=== PATIENT | female | born 1980 | race Caucasian/White ===

== ENCOUNTER 2017-02-15 03:41 | Emergency (ER) | payer OTHER ==
--- NOTE | 2017-02-15 04:09 | ED CLINICAL REPORT ---
Clinical Report - Physicians/Mid Levels [facility] [address] [place] [address] 02/15/2017 3:42 [id number] Time Seen: 03:56 Feb 15 2017. Arrived- By private vehicle. Historian- patient. CPT: ER phys charges level 4 (#[id number]). HISTORY OF PRESENT ILLNESS Chief Complaint: DYSPNEA, WHEEZING and HISTORY OF ASTHMA. This started about 6 days [employer]EL[employer]IN [employer] and is still present. The dyspnea is described as moderate. No cough, sputum production or chest pain or discomfort. See nurses notes for current asthma threapy. Asthma triggers: unknown. Takes asthma medications. Similar symptoms previously: As bad. Diagnosis: asthma. Recent medical care: Not recently seen/assessed. REVIEW OF SYSTEMS No sore throat, nasal discharge, sinus drainage, fever or chills. No muscle aches, palpitations, calf pain, nausea or abdominal pain. No diarrhea, difficulty with urination, excessive urination, skin rash or enlarged lymph nodes. PAST HISTORY Cholelithiasis. Asthma. MRSA Infection. . ADDITIONAL SURGERIES: C Sections (2). Knee Surgery. Medications: Albuterol Sulfate Inhalation. Allergies: Many pain medications. Tramadol HCL. Vicodin.(hives). SOCIAL HISTORY Never smoker. No alcohol use or drug use. ADDITIONAL NOTES The nursing notes have been reviewed. PHYSICAL EXAM Vital Signs: 02/15/2017 03:46 BP: 123/69. HR: 99. RR: 40. O2 saturation: 99%. Temp: 97.8 F. Pain level now: 0/10. Appearance: Alert. No acute distress. Eyes: Eyes normal inspection. ENT: Nose normal. Pharynx normal. Uvula midline. Neck: Normal inspection. CVS: Normal heart rate and rhythm. Heart sounds normal. Pulses normal. Respiratory: Moderate respiratory distress with tachypnea. Expiratory moderate bilateral wheezes diffusely. Abdomen: Soft and nontender. Skin: Skin warm. Normal skin color. No rash. Extremities: No lower extremity edema. Neuro: Oriented X 3. No motor deficit. PROGRESS AND PROCEDURES Course of Care: Albuterol HHN Prednisone 60 mg po Patient is stable. Symptoms much better. Patient/family counseled. Disposition: Discharged. Condition: stable and improved. CLINICAL IMPRESSION Moderate persistent asthma with an acute exacerbation (recurrent). No status asthmaticus. out of meds. INSTRUCTIONS (gets meds later today when ready.). Warnings: Further evaluation is necessary. GENERAL WARNINGS: Return or contact your physician immediately if your condition worsens or changes unexpectedly, if not improving as expected, or if other problems arise. Your Current Medications: CONTINUE TAKING THE FOLLOWING MEDICATIONS: Albuterol Sulfate Inhalation. Prescription Medications: prednisone 40 mg a day for 3 days. Follow-up: Follow up with your doctor in one week. Call for an appointment. Understanding of the discharge instructions verbalized by patient. (Electronically signed by Damon Crowder MD 02/19/2017 21:03)
--- NOTE | 2017-02-15 04:09 | ED CLINICAL REPORT ---
Clinical Report - Physicians/Mid Levels [facility] [address] [place] [address] 02/15/2017 3:42 [id number] Time Seen: 03:56 Feb 15 2017. Arrived- By private vehicle. Historian- patient. CPT: ER phys charges level 4 (#[id number]). HISTORY OF PRESENT ILLNESS Chief Complaint: DYSPNEA, WHEEZING and HISTORY OF ASTHMA. 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 The dyspnea is described as moderate. No cough, sputum production or chest pain or discomfort. See nurses notes for current asthma threapy. Asthma triggers: unknown. Takes asthma medications. Similar symptoms previously: As bad. Diagnosis: asthma. Recent medical care: Not recently seen/assessed. REVIEW OF SYSTEMS No sore throat, nasal discharge, sinus drainage, fever or chills. No muscle aches, palpitations, calf pain, nausea or abdominal pain. No diarrhea, difficulty with urination, excessive urination, skin rash or enlarged lymph nodes. PAST HISTORY Cholelithiasis. Asthma. MRSA Infection. . ADDITIONAL SURGERIES: C Sections (2). Knee Surgery. Medications: Albuterol Sulfate Inhalation. Allergies: Many pain medications. Tramadol HCL. Vicodin.(hives). SOCIAL HISTORY Never smoker. No alcohol use or drug use. ADDITIONAL NOTES The nursing notes have been reviewed. PHYSICAL EXAM Vital Signs: 02/15/2017 03:46 BP: 123/69. HR: 99. RR: 40. O2 saturation: 99%. Temp: 97.8 F. Pain level now: 0/10. Appearance: Alert. No acute distress. Eyes: Eyes normal inspection. ENT: Nose normal. Pharynx normal. Uvula midline. Neck: Normal inspection. CVS: Normal heart rate and rhythm. Heart sounds normal. Pulses normal. Respiratory: Moderate respiratory distress with tachypnea. Expiratory moderate bilateral wheezes diffusely. Abdomen: Soft and nontender. Skin: Skin warm. Normal skin color. No rash. Extremities: No lower extremity edema. Neuro: Oriented X 3. No motor deficit. PROGRESS AND PROCEDURES Course of Care: Albuterol HHN Prednisone 60 mg po Patient is stable. Symptoms much better. Patient/family counseled. Disposition: Discharged. Condition: stable and improved. CLINICAL IMPRESSION Moderate persistent asthma with an acute exacerbation (recurrent). No status asthmaticus. out of meds. INSTRUCTIONS (gets meds later today when ready.). Warnings: Further evaluation is necessary. GENERAL WARNINGS: Return or contact your physician immediately if your condition worsens or changes unexpectedly, if not improving as expected, or if other problems arise. Your Current Medications: CONTINUE TAKING THE FOLLOWING MEDICATIONS: Albuterol Sulfate Inhalation. Prescription Medications: prednisone 40 mg a day for 3 days. Follow-up: Follow up with your doctor in one week. Call for an appointment. Understanding of the discharge instructions verbalized by patient. (Electronically signed by Damon Crowder MD 02/19/2017 21:03)
--- NOTE | 2017-02-15 04:10 | ED ORDER SUMMARY ---
..... Patient: JOEY SHAW OrderSheet [facility] VisitID: [id number] [address] [place] [address] 37y, F Registration Date/Time: 02/15/2017 ORDER SHEET Weight: 97.5 kg (stated) Allergies: Many pain medications, Tramadol HCL, Vicodin GENERAL ORDERS: MEDICATION ORDERS: Albuterol Neb w Atrovent 1 unit dose (NOW) (03:51 02/15/2017 DDavis R.N. per protocol) (Ack 3:51 DDavis R.N.) (4:10 DDavis R.N.) Prednisone PO 60 mg (NOW) (04:08 02/15/2017 Manuelito GONZÁLES) (4:15 DDavis R.N.) IV FLUIDS: ORDER SHEET NOTES: [Electronically signed by Maxim Albarado R.N. (04:16 02/15/2017)] [Electronically signed by Damon Crowder MD (21:03 02/19/2017)] [Electronically locked/signed by Maxim Albarado R.N. (04:16 02/15/2017)]
--- NOTE | 2017-02-15 04:10 | ED NURSING NOTES ---
Clinical Report - Nurses [facility] [address] [place] [address] 02/15/2017 3:42 Patient: JOEY SHAW TRIAGE Triage time 03:46. Acuity: LEVEL 3. Chief Complaint: "ASTHMA ATTACK" and WHEEZING. Alert. --03:50 Maxim Albarado R.N. 03:46 02/15/17. BP: 123/69. HR: 99. RR: 40 (labored). O2 saturation: 99% on room air. Temp: 97.8 F (oral). Pain level now: 0/10. --03:50 Maxim Albarado R.N. OMAR COMA SCORE: [place] Coma Scale: 15- eyes open spontaneously (4); best verbal response- oriented x 4 (5); best motor response- obeys commands (6). --03:50 Maxim Albarado R.N. Weight: 97.5 kg stated. Height/Length: 62 inches Per Patient. BMI: 39.4. --03:45 Maxim Albarado R.N. Medications Albuterol Sulfate Inhalation. --03:47 Maxim Albarado R.N. Allergies Many pain medications. Tramadol HCL. Vicodin.(hives) --03:47 Maxim Albarado R.N. History Arrived by private vehicle, and unaccompanied. Onset. (saturday ( 6 days ago), increasing today). PAST MEDICAL HX: Asthma. SOCIAL HX: Never smoker. No alcohol use or drug use. ( denies HI/SI, states that she feels safe at home). FALL RISK ASSESSMENT: Fall risk assessment completed. No fall risk identified. NUTRITIONAL RISK ASSESSMENT: The nutritional risk assessment revealed no deficiencies. FUNCTIONAL ASSESSMENT: Functional assessment: no impairments noted. LEARNING NEEDS ASSESSMENT: The learning needs assessment revealed no barriers. SKIN INTEGRITY ASSESSMENT: Skin integrity risk assessment completed. No skin integrity risk identified. --03:50 Maxim Albarado R.N. PROBLEMS: Cholelithiasis. Asthma. MRSA Infection. --03:47 Maxim Albarado R.N. ADDITIONAL SURGERIES: C Sections (2). Knee Surgery. --03:47 Maxim Albarado R.N. Interventions ID band on patient. To treatment room. --03:50 Maxim Albarado R.N. PHYSICAL ASSESSMENT Ambulatory to room. GENERAL / NEURO / PSYCH: Oriented X 4. Appears in distress. HEENT: Mucous membranes are pink. RESPIRATORY: Moderate respiratory distress. The patient can speak a few words at a time. CVS: Capillary refill less than 2 seconds. GI / : Abdomen soft and nontender. SKIN: Skin is warm and dry. Normal skin turgor. --03:50 Maxim Albarado R.N. RESPIRATORY: Expiratory and inspiratory wheezes present. --03:52 Maxim Albarado R.N. GENERAL / NEURO / PSYCH: Alert. Oriented X 4. Appears in no acute distress. RESPIRATORY: No respiratory distress. Respirations not labored. Breath sounds within normal limits. --04:10 Maxim Albarado R.N. NURSING PROGRESS NOTES ( RT present with patient). --03:51 Maxim Albardao R.N. Pulse oximeter and NIBP monitor placed on patient. Patient gowned. Two patient identifiers checked. Call light placed in reach. Side rails up x 1. Bed placed in lowest position. Brakes of bed on. Patient ready for evaluation- chart flagged. Patient waiting for evaluation. --03:52 Maxim Albarado R.N. ED physician notified. --03:54 Maxim Albarado R.N. 03:55 02/15/2017 ALBUTEROL NEB W ATROVENT Neb TX Nebulizer 1 unit dose given. Given by the respiratory therapist. --04:10 Maxim Albarado R.N. 04:15 02/15/2017 Prednisone PO Tablets 60 mg given. Allergies verified and confirmed 5 rights. --04:15 Maxim Albarado R.N. DISPOSITION / DISCHARGE 04:11 02/15/17. BP: 112/57. HR: 98. RR: 20 (regular and unlabored). O2 saturation: 98% on room air. Pain level now: 0/10. --04:11 Maxim Albarado R.N. Departure time: 04:15. Condition at departure: improved and stable. No learning barriers present. Discharge instructions provided and reviewed with the patient. Reviewed warnings. Reviewed medication(s) side effects, precautions, dosing and course information. Prescription(s) given to the patient. Treatments reviewed. Reviewed referrals for followup. Patient verbalized understanding. Written instructions provided in Azeri. The patient was discharged home and unaccompanied at time of discharge. She left the Emergency Department ambulatory and via private vehicle. Patient driving. --04:16 Maxim Albarado R.N. Locked/Released at 02/15/2017 4:16 by Maxim Albarado R.N.
--- NOTE | 2017-02-15 04:10 | ED ORDER SUMMARY ---
..... Patient: JOEY SHAW OrderSheet [facility] VisitID: [id number] [address] [place] [address] 37y, F Registration Date/Time: 02/15/2017 ORDER SHEET Weight: 97.5 kg (stated) Allergies: Many pain medications, Tramadol HCL, Vicodin GENERAL ORDERS: MEDICATION ORDERS: Albuterol Neb w Atrovent 1 unit dose (NOW) (03:51 02/15/2017 DDavis R.N. per protocol) (Ack 3:51 DDavis R.N.) (4:10 DDavis R.N.) Prednisone PO 60 mg (NOW) (04:08 02/15/2017 Manuelito GONZÁLES) (4:15 DDavis R.N.) IV FLUIDS: ORDER SHEET NOTES: [Electronically signed by Maxim Albarado R.N. (04:16 02/15/2017)] [Electronically signed by Damon Crowder MD (21:03 02/19/2017)] [Electronically locked/signed by Maxim Albarado R.N. (04:16 02/15/2017)]
--- NOTE | 2017-02-19 21:03 | ED MAR SUMMARY ---
..... Medication Administration Record [facility] [address] [place] [address] Patient: JOEY SHAW Visit ID: [id number] 37y, F Weight: 97.5 kg Height/Length: 62 in BMI: 39.4 ALLERGIES: Many pain medications, Tramadol HCL, Vicodin Given 03:55 02/15/2017 Maxim Albarado RMirnaN. Medication Administered: ALBUTEROL NEB W ATROVENT, Dose: 1 unit dose Nebulizer Neb [place]. Medication Ordered: Albuterol Neb w Atrovent 1 unit dose (NOW). Given 04:15 02/15/2017 Maxim Albarado, RMirnaN. Medication Administered: PREDNISONE [PO], Dose: 60 mg Tablets PO. Medication Ordered: Prednisone PO 60 mg (NOW).
--- NOTE | 2017-02-19 21:03 | ED MED RECONCILIATION SUMMARY ---
Patient: JOEY SHAW Medication Reconciliation Report [facility] VisitID: [id number] [address] [place] [address] 37y, F Registration Date/Time: 02/15/2017 Weight: 97.5 kg Height/Length: 62 in. BMI: 39.4 ALLERGIES: Many pain medications, Tramadol HCL, Vicodin The patient's Home Medications are listed below: CONTINUE TAKING THE FOLLOWING MEDICATIONS: Albuterol Sulfate Inhalation The source(s) of the original Home Medication information: Not obtained. The following Medications were given to the patient in the Emergency Department: ALBUTEROL NEB W ATROVENT Neb TX 1 unit dose, administered: 02/15/2017 3:55:00 AM Prednisone [PO] PO 60 mg, administered: 02/15/2017 4:15:00 AM The following Medications were prescribed to the patient: prednisone 40 mg a day for 3 days. -- Damon Crowder MD
--- NOTE | 2017-02-19 21:03 | ED MED RECONCILIATION SUMMARY ---
Patient: JOEY SHAW Medication Reconciliation Report [facility] VisitID: [id number] [address] [place] [address] 37y, F Registration Date/Time: 02/15/2017 Weight: 97.5 kg Height/Length: 62 in. BMI: 39.4 ALLERGIES: Many pain medications, Tramadol HCL, Vicodin The patient's Home Medications are listed below: CONTINUE TAKING THE FOLLOWING MEDICATIONS: Albuterol Sulfate Inhalation The source(s) of the original Home Medication information: Not obtained. The following Medications were given to the patient in the Emergency Department: ALBUTEROL NEB W ATROVENT Neb TX 1 unit dose, administered: 02/15/2017 3:55:00 AM Prednisone [PO] PO 60 mg, administered: 02/15/2017 4:15:00 AM The following Medications were prescribed to the patient: prednisone 40 mg a day for 3 days. -- Damon Crowder MD
--- NOTE | 2017-02-19 21:03 | ED DISCHARGE INSTRUCTIONS ---
Patient: JOEY SHAW General Instructions [facility] VisitID: [id number] [address] [place] [address] 37y, F Registration Date/Time: 02/15/2017 Moderate persistent asthma with an acute exacerbation (recurrent). No status asthmaticus. out of meds. INSTRUCTIONS (gets meds later today when ready.). Warnings: Further evaluation is necessary. GENERAL WARNINGS: Return or contact your physician immediately if your condition worsens or changes unexpectedly, if not improving as expected, or if other problems arise. Your Current Medications: CONTINUE TAKING THE FOLLOWING MEDICATIONS: Albuterol Sulfate Inhalation. Prescription Medications: prednisone 40 mg a day for 3 days. Follow-up: Follow up with your doctor in one week. Call for an appointment. Understanding of the discharge instructions verbalized by patient. ADDITIONAL INFORMATION Asthma [Adult] Asthma is a disease where the small air passages within the lung go into spasm and restrict the flow of air. Inflammation and swelling of the airways cause further restriction. During an acute asthma attack, these factors cause difficulty breathing, wheezing, cough and chest tightness. An asthma attack can be triggered by many things. Common triggers include the common cold, bronchitis, pneumonia, irritants such as smoke or pullutants in the air, emotional upset and heavy exercise. Inmany adults with asthma, allergies todust, mold, pollen and animal dander can cause an asthma attack. Skipping doses of daily asthma medicine can also bring on an asthma attack. Asthma can be controlled with proper medicines and decreased exposure to known allergens. Home Care: Take prescribed medicine exactly at the times advised. If you have a hand-held inhaler or aerosol breathing medicine, do not use it more than once every four hours, unless told to do so. (If you need this medicine more than every four hours, you may need to return to the Emergency Room.) If prescribed an antibiotic or prednisone, take all of the medicine even if you are feeling better after a few days. Do not smoke. Avoid being exposed to the smoke of others. Some persons with asthma have worsening of their symptoms when they take aspirin and non-steroidal medicines like ibuprofen (Motrin, Advil) and naproxen (Aleve, Naprosyn). Talk to your doctor if you think this may apply to you. Acetaminophen (Tylenol)should be safe to use. Follow Up with your doctor, or as advised by our staff. Always bring all of your current medicines with you for your doctor to see. If you do not already have one, talk to your doctor about developing a personalized "Asthma Action Plan." [NOTE: A pneumococcal vaccine and yearly flu shot (every fall) are recommended. Ask your doctor about this.] Get Prompt Medical Attention if any of the following occur: Increased wheezing or shortness of breath Need to use your inhalers more often than usual without relief Fever of 100.4F (38C) or higher, or as directed by your healthcare provider Coughing up lots of dark-colored or bloody sputum (mucus) Chest pain with each breath You do not start to improve within 24 hours Call 911 If Any Of The Following Occur : Trouble walking or talking because of shortness of breath If you use a peak flow meter andyou are still in the red zone (less than 50 percent) 15 minutes after using inhaler medication Lips or fingernails turning hui or blue You have been given the following additional information: Asthma, Acute (Adult) (Electronically signed by Damon Crowder MD 02/19/2017 21:03)
--- NOTE | 2017-02-19 21:03 | ED MAR SUMMARY ---
..... Medication Administration Record [facility] [address] [place] [address] Patient: JOEY SHAW Visit ID: [id number] 37y, F Weight: 97.5 kg Height/Length: 62 in BMI: 39.4 ALLERGIES: Many pain medications, Tramadol HCL, Vicodin Given 03:55 02/15/2017 Maxim Albarado RMirnaN. Medication Administered: ALBUTEROL NEB W ATROVENT, Dose: 1 unit dose Nebulizer Neb [place]. Medication Ordered: Albuterol Neb w Atrovent 1 unit dose (NOW). Given 04:15 02/15/2017 Maxim Albarado, RMirnaN. Medication Administered: PREDNISONE [PO], Dose: 60 mg Tablets PO. Medication Ordered: Prednisone PO 60 mg (NOW).
== END 2017-02-15 04:15 | disposition home or self-care (01) ==
LOC: ED SRH 03:41
DX: J45.41 Moderate persistent asthma with (acute) exacerbation (principal)

== ENCOUNTER 2017-03-05 21:34 | Emergency (ER) | payer OTHER ==
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
--- NOTE | 2017-03-05 22:37 | ED ORDER SUMMARY ---
..... Patient: JOEY SHAW OrderSheet [facility] VisitID: [id number] [address] [place] [address] 37y, F Registration Date/Time: 03/05/2017 ORDER SHEET Weight: 97.5 kg Allergies: Many pain medications, Tramadol HCL, Vicodin GENERAL ORDERS: Shoulder 2V or more Right Urgent (22:11 03/05/2017 HBivens A.R.N.P.) (22:15 EHassan R.N.) ([facility] 22:15 AMcQuoid ER Tech1) MEDICATION ORDERS: Toradol IM 60 mg (NOW) (22:11 03/05/2017 HBivens A.R.N.P.) (22:27 EHassan R.N.) IV FLUIDS: ORDER SHEET NOTES: [Electronically signed by Malgorzata Leon R.N. (23:00 03/05/2017)] [Electronically signed by Nicki Palma.R.N.P. (13:22 03/06/2017)] [Electronically locked/signed by Malgorzata Leon R.N. (23:00 03/05/2017)]
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
--- NOTE | 2017-03-05 22:37 | ED ORDER SUMMARY ---
..... Patient: JOEY SHAW OrderSheet VisitID: [id number] [address] [place] [address] 37y, F Registration Date/Time: 03/05/2017 ORDER SHEET Weight: 97.5 kg Allergies: Many pain medications, Tramadol HCL, Vicodin GENERAL ORDERS: Shoulder 2V or more Right Urgent (22:11 03/05/2017 HBivens A.R.N.P.) (22:15 EHassan R.N.) ([facility] 22:15 AMcQuoid ER Tech1) MEDICATION ORDERS: Toradol IM 60 mg (NOW) (22:11 03/05/2017 HBivens A.R.N.P.) (22:27 EHassan R.N.) IV FLUIDS: ORDER SHEET NOTES: [Electronically signed by Malgorzata Leon R.N. (23:00 03/05/2017)] [Electronically signed by Nicki Palma.R.N.P. (13:22 03/06/2017)] [Electronically locked/signed by Malgorzata Leon R.N. (23:00 03/05/2017)]
--- NOTE | 2017-03-05 23:18 | DIAGNOSTIC IMAGING REPORT ---
PROCEDURE: XR SHOULDER 2 OR MORE VW-RIGHT INDICATION: PAIN TECHNIQUE: Three views. COMPARISON: None. FINDINGS: Osseous structures, joint spaces and soft tissues are normal. IMPRESSION: 1. Normal right shoulder.
--- NOTE | 2017-03-06 13:22 | ED MED RECONCILIATION SUMMARY ---
Patient: JOEY SHAW Medication Reconciliation Report [facility] VisitID: [id number] [address] [place] [address] 37y, F Registration Date/Time: 03/05/2017 Weight: 97.5 kg Height/Length: 62 in. BMI: 39.4 ALLERGIES: Many pain medications, Tramadol HCL, Vicodin The patient's Home Medications are listed below: THE FOLLOWING MEDICATIONS NEED TO BE RECONCILED: Albuterol Sulfate Inhalation The source(s) of the original Home Medication information: patient The following Medications were given to the patient in the Emergency Department: Toradol [IM] IM 60 mg, administered: 03/05/2017 10:27:00 PM The following Medications were prescribed to the patient: Naproxen 500 mg tablets: take 1 orally every 12 hours as needed for pain. Dispense twenty (20). No refills. -- Nicki Palma A.R.N.P.
--- NOTE | 2017-03-06 13:22 | ED DISCHARGE INSTRUCTIONS ---
Patient: JOEY SHAW General Instructions [facility] VisitID: [id number] [address], [place] [address] 37y, F Registration Date/Time: 03/05/2017 Chronic upper extremity pain involving the right shoulder. INSTRUCTIONS Warnings: GENERAL WARNINGS: Return or contact your physician immediately if your condition worsens or changes unexpectedly, if not improving as expected, or if other problems arise. Specifically return if problem worsens. Prescription Medications: Naproxen 500 mg tablets: take 1 orally every 12 hours as needed for pain. Dispense twenty (20). No refills. Understanding of the discharge instructions verbalized by patient. Follow-up with: [facility], [facility], , [address], , [place] [phone]; Mook Arias M.D., Ortho, , [address], , [place] [phone]; William Geronimo M.D., Ortho, , [address], , [facility] [id number]; Haresh Goodman MD, Orthopedic Surgeon, , [address], , [place], [address]; Nicholas Solitario MD, Orthopedic Surgeon, , [address] , [place] [phone] Follow up in about one week as needed. Call for an appointment. Summary of care provided to patient. ADDITIONAL INFORMATION Shoulder Pain (Uncertain Cause) Shoulder pain often arises from the structures that surround the shoulder joint (the joint capsule, ligaments, tendons, muscles, and bursa). The joint itself contains cartilage that can become worn out or injured and can also be a source of pain. The correct treatment requires knowing the cause of the pain. Sometimes it is difficult to diagnose the exact cause of shoulder pain and referral to a specialist may be required. You may eventually need special tests such as CT scan, MRI, or arthroscopy (a procedure that uses special instruments to look inside the joint through a small incision). Shoulder pain can be treated initially with a sling or shoulder immobilizer and anti-inflammatory medicines such as ibuprofen. Special shoulder exercises may be needed. Follow-up with a specialist is important when pain is severe or does not go away after a few weeks. Home Care: If a sling was provided, leave it in place for the time advised by your doctor. If you are unsure how long to wear it, ask for advice. If the sling becomes loose, adjust it so that your forearm is level with the ground and the shoulder feels well supported. Apply an ice pack (ice cubes in a plastic bag, wrapped in a towel) over the injured area for 20 minutes every 1 to 2 hours the first day for pain relief. Continue this 3 to 4 times a day until the pain and swelling go away. You may use acetaminophen (Tylenol) or ibuprofen (Motrin, Advil) to control pain, unless another pain medicine was prescribed. (NOTE: If you have chronic liver or kidney disease or ever had a stomach ulcer or GI bleeding, talk with your doctor before using these medicines.) Shoulder pain may seem worse at night, when there is less to distract you from the pain. If you sleep on your side, try to keep your weight off your painful shoulder. Propping pillows behind you may prevent you from rolling over onto that shoulder during sleep. Shoulder joints become stiff if left in a sling for too long. [id number] exercises should usually be started within the first 10 days after injury. Consult your doctor on what type of exercises to do and how soon to start. You may remove the sling to shower or bathe. Follow Up with your doctor, or as advised by our staff, if you are not starting to improve within the next 5 days. Get Prompt Medical Attention if any of the following occur: Pain or swelling increases Hand or fingers becomes cold, blue, numb, or tingly Large amount of bruising of the shoulder or upper arm Naproxen Sodium Oral tablet What is this medicine? NAPROXEN (na PROX en) is a non-steroidal anti-inflammatory drug (NSAID). It is used to reduce swelling and to treat pain. This medicine may be used for dental pain, headache, or painful monthly periods. It is also used for painful joint and muscular problems such as arthritis, tendinitis, bursitis, and gout. How should I use this medicine? Take this medicine by mouth with a glass of water. Follow the directions on the prescription label. Take it with food if your stomach gets upset. Try to not lie down for at least 10 minutes after you take it. Take your medicine at regular intervals. Do not take your medicine more often than directed. Long-term, continuous use may increase the risk of heart attack or stroke. A special MedGuide will be given to you by the pharmacist with each prescription and refill. Be sure to read this information carefully each time. Talk to your waterworks supervisor regarding the use of this medicine in children. Special care may be needed. What side effects may I notice from receiving this medicine? Side effects that you should report to your doctor or health daycare teacher as soon as possible: black or bloody stools, blood in the urine or vomit blurred vision chest pain difficulty breathing or wheezing nausea or vomiting severe stomach pain skin rash, skin redness, blistering or peeling skin, hives, or itching slurred speech or weakness on one side of the body swelling of eyelids, throat, lips unexplained weight gain or swelling unusually weak or tired yellowing of eyes or skin Side effects that usually do not require medical attention (report to your doctor or health daycare teacher if they continue or are bothersome): constipation headache heartburn What may interact with this medicine? alcohol aspirin cidofovir diuretics lithium methotrexate other drugs for inflammation like ketorolac or prednisone pemetrexed probenecid warfarin What if I miss a dose? If you miss a dose, take it as soon as you can. If it is almost time for your next dose, take only that dose. Do not take double or extra doses. Where should I keep my medicine? Keep out of the reach of children. Store at room temperature between 15 and 30 degrees C (59 and 86 degrees F). Keep container tightly closed. Throw away any unused medicine after the expiration date. What should I tell my health care provider before I take this medicine? They need to know if you have any of these conditions: asthma cigarette smoker drink more than 3 alcohol containing drinks a day heart disease or circulation problems such as heart failure or leg edema (fluid retention) high blood pressure kidney disease liver disease stomach bleeding or ulcers an unusual or allergic reaction to naproxen, aspirin, other NSAIDs, other medicines, foods, dyes, or preservatives or trying to get breast-feeding What should I watch for while using this medicine? Tell your doctor or health daycare teacher if your pain does not get better. Talk to your doctor before taking another medicine for pain. Do not treat yourself. This medicine does not prevent heart attack or stroke. In fact, this medicine may increase the chance of a heart attack or stroke. The chance may increase with longer use of this medicine and in people who have heart disease. If you take aspirin to prevent heart attack or stroke, talk with your doctor or health daycare teacher. Do not take other medicines that contain aspirin, ibuprofen, or naproxen with this medicine. Side effects such as stomach upset, nausea, or ulcers may be more likely to occur. Many medicines available without a prescription should not be taken with this medicine. This medicine can cause ulcers and bleeding in the stomach and intestines at any time during treatment. Do not smoke cigarettes or drink alcohol. These increase irritation to your stomach and can make it more susceptible to damage from this medicine. Ulcers and bleeding can happen without warning symptoms and can cause . You may get drowsy or dizzy. Do not drive, use machinery, or do anything that needs mental alertness until you know how this medicine affects you. Do not stand or sit up quickly, especially if you are an older patient. This reduces the risk of dizzy or fainting spells. This medicine can cause you to bleed more easily. Try to avoid damage to your teeth and gums when you brush or floss your teeth. You have been given the following additional information: Shoulder Pain (Uncertain Cause) Naproxen Sodium Oral tablet (Electronically signed by Nicki Palma A.R.N.P. 03/06/2017 13:22)
--- NOTE | 2017-03-06 13:22 | ED MED RECONCILIATION SUMMARY ---
Patient: JOEY SHAW Medication Reconciliation Report [facility] VisitID: [id number] [address] [place] [address] 37y, F Registration Date/Time: 03/05/2017 Weight: 97.5 kg Height/Length: 62 in. BMI: 39.4 ALLERGIES: Many pain medications, Tramadol HCL, Vicodin The patient's Home Medications are listed below: THE FOLLOWING MEDICATIONS NEED TO BE RECONCILED: Albuterol Sulfate Inhalation The source(s) of the original Home Medication information: patient The following Medications were given to the patient in the Emergency Department: Toradol [IM] IM 60 mg, administered: 03/05/2017 10:27:00 PM The following Medications were prescribed to the patient: Naproxen 500 mg tablets: take 1 orally every 12 hours as needed for pain. Dispense twenty (20). No refills. -- Nicki Palma A.R.N.P.
--- NOTE | 2017-03-06 13:22 | ED MAR SUMMARY ---
..... Medication Administration [facility] [address] [place] [address] Patient: JOEY SHAW Visit ID: [id number] 37y, F Weight: 97.5 kg Height/Length: 62 in BMI: 39.4 ALLERGIES: Many pain medications, Tramadol HCL, Vicodin Given 22:27 03/05/2017 Malgorzata Leon RRachel Medication Administered: TORADOL [IM] (KETOROLAC TROMETHAMINE), Dose: 60 mg IM. Medication Ordered: Toradol IM 60 mg (NOW).
--- NOTE | 2017-03-06 13:22 | ED DISCHARGE INSTRUCTIONS ---
Patient: JOEY SHAW General Instructions [facility] VisitID: [id number] [address], [place] [address] 37y, F Registration Date/Time: 03/05/2017 Chronic upper extremity pain involving the right shoulder. INSTRUCTIONS Warnings: GENERAL WARNINGS: Return or contact your physician immediately if your condition worsens or changes unexpectedly, if not improving as expected, or if other problems arise. Specifically return if problem worsens. Prescription Medications: Naproxen 500 mg tablets: take 1 orally every 12 hours as needed for pain. Dispense twenty (20). No refills. Understanding of the discharge instructions verbalized by patient. Follow-up with: [facility], [facility], , [address], , [place] [phone]; Mook Arias M.D., Ortho, , [address], , [place] [phone]; William Geronimo M.D., Ortho, , [address], , [facility] [address]; Haresh Goodman MD, Orthopedic Surgeon, , [address], , [place], [address]; Nicholas Solitario MD, Orthopedic Surgeon, , [address] , [place] [phone] Follow up in about one week as needed. Call for an appointment. Summary of care provided to patient. ADDITIONAL INFORMATION Shoulder Pain (Uncertain Cause) Shoulder pain often arises from the structures that surround the shoulder joint (the joint capsule, ligaments, tendons, muscles, and bursa). The joint itself contains cartilage that can become worn out or injured and can also be a source of pain. The correct treatment requires knowing the cause of the pain. Sometimes it is difficult to diagnose the exact cause of shoulder pain and referral to a specialist may be required. You may eventually need special tests such as CT scan, MRI, or arthroscopy (a procedure that uses special instruments to look inside the joint through a small incision). Shoulder pain can be treated initially with a sling or shoulder immobilizer and anti-inflammatory medicines such as ibuprofen. Special shoulder exercises may be needed. Follow-up with a specialist is important when pain is severe or does not go away after a few weeks. Home Care: If a sling was provided, leave it in place for the time advised by your doctor. If you are unsure how long to wear it, ask for advice. If the sling becomes loose, adjust it so that your forearm is level with the ground and the shoulder feels well supported. Apply an ice pack (ice cubes in a plastic bag, wrapped in a towel) over the injured area for 20 minutes every 1 to 2 hours the first day for pain relief. Continue this 3 to 4 times a day until the pain and swelling go away. You may use acetaminophen (Tylenol) or ibuprofen (Motrin, Advil) to control pain, unless another pain medicine was prescribed. (NOTE: If you have chronic liver or kidney disease or ever had a stomach ulcer or GI bleeding, talk with your doctor before using these medicines.) Shoulder pain may seem worse at night, when there is less to distract you from the pain. If you sleep on your side, try to keep your weight off your painful shoulder. Propping pillows behind you may prevent you from rolling over onto that shoulder during sleep. Shoulder joints become stiff if left in a sling for too long. [id number] exercises should usually be started within the first 10 days after injury. Consult your doctor on what type of exercises to do and how soon to start. You may remove the sling to shower or bathe. Follow Up with your doctor, or as advised by our staff, if you are not starting to improve within the next 5 days. Get Prompt Medical Attention if any of the following occur: Pain or swelling increases Hand or fingers becomes cold, blue, numb, or tingly Large amount of bruising of the shoulder or upper arm Naproxen Sodium Oral tablet What is this medicine? NAPROXEN (na PROX en) is a non-steroidal anti-inflammatory drug (NSAID). It is used to reduce swelling and to treat pain. This medicine may be used for dental pain, headache, or painful monthly periods. It is also used for painful joint and muscular problems such as arthritis, tendinitis, bursitis, and gout. How should I use this medicine? Take this medicine by mouth with a glass of water. Follow the directions on the prescription label. Take it with food if your stomach gets upset. Try to not lie down for at least 10 minutes after you take it. Take your medicine at regular intervals. Do not take your medicine more often than directed. Long-term, continuous use may increase the risk of heart attack or stroke. A special MedGuide will be given to you by the pharmacist with each prescription and refill. Be sure to read this information carefully each time. Talk to your state attorney regarding the use of this medicine in children. Special care may be needed. What side effects may I notice from receiving this medicine? Side effects that you should report to your doctor or health resident caregiver as soon as possible: black or bloody stools, blood in the urine or vomit blurred vision chest pain difficulty breathing or wheezing nausea or vomiting severe stomach pain skin rash, skin redness, blistering or peeling skin, hives, or itching slurred speech or weakness on one side of the body swelling of eyelids, throat, lips unexplained weight gain or swelling unusually weak or tired yellowing of eyes or skin Side effects that usually do not require medical attention (report to your doctor or health resident caregiver if they continue or are bothersome): constipation headache heartburn What may interact with this medicine? alcohol aspirin cidofovir diuretics lithium methotrexate other drugs for inflammation like ketorolac or prednisone pemetrexed probenecid warfarin What if I miss a dose? If you miss a dose, take it as soon as you can. If it is almost time for your next dose, take only that dose. Do not take double or extra doses. Where should I keep my medicine? Keep out of the reach of children. Store at room temperature between 15 and 30 degrees C (59 and 86 degrees F). Keep container tightly closed. Throw away any unused medicine after the expiration date. What should I tell my health care provider before I take this medicine? They need to know if you have any of these conditions: asthma cigarette smoker drink more than 3 alcohol containing drinks a day heart disease or circulation problems such as heart failure or leg edema (fluid retention) high blood pressure kidney disease liver disease stomach bleeding or ulcers an unusual or allergic reaction to naproxen, aspirin, other NSAIDs, other medicines, foods, dyes, or preservatives or trying to get breast-feeding What should I watch for while using this medicine? Tell your doctor or health resident caregiver if your pain does not get better. Talk to your doctor before taking another medicine for pain. Do not treat yourself. This medicine does not prevent heart attack or stroke. In fact, this medicine may increase the chance of a heart attack or stroke. The chance may increase with longer use of this medicine and in people who have heart disease. If you take aspirin to prevent heart attack or stroke, talk with your doctor or health resident caregiver. Do not take other medicines that contain aspirin, ibuprofen, or naproxen with this medicine. Side effects such as stomach upset, nausea, or ulcers may be more likely to occur. Many medicines available without a prescription should not be taken with this medicine. This medicine can cause ulcers and bleeding in the stomach and intestines at any time during treatment. Do not smoke cigarettes or drink alcohol. These increase irritation to your stomach and can make it more susceptible to damage from this medicine. Ulcers and bleeding can happen without warning symptoms and can cause . You may get drowsy or dizzy. Do not drive, use machinery, or do anything that needs mental alertness until you know how this medicine affects you. Do not stand or sit up quickly, especially if you are an older patient. This reduces the risk of dizzy or fainting spells. This medicine can cause you to bleed more easily. Try to avoid damage to your teeth and gums when you brush or floss your teeth. You have been given the following additional information: Shoulder Pain (Uncertain Cause) Naproxen Sodium Oral tablet (Electronically signed by Nicki Palma A.R.N.P. 03/06/2017 13:22)
--- NOTE | 2017-03-06 13:22 | ED MAR SUMMARY ---
..... Medication Administration Record [facility] [address] [place] [address] Patient: JOEY SHAW Visit ID: [id number] 37y, F Weight: 97.5 kg Height/Length: 62 in BMI: 39.4 ALLERGIES: Many pain medications, Tramadol HCL, Vicodin Given 22:27 03/05/2017 Malgorzata Leon RRachel Medication Administered: TORADOL [IM] (KETOROLAC TROMETHAMINE), Dose: 60 mg IM. Medication Ordered: Toradol IM 60 mg (NOW).
== END 2017-03-05 23:05 | disposition home or self-care (01) ==
LOC: ED SRH 21:34
DX: M25.511 Pain in right shoulder (principal); G89.29 Other chronic pain; Z87.891 Personal history of nicotine dependence; Z86.14 Personal history of Methicillin resistant Staphylococcus aureus infection; Z88.8 Allergy status to other drugs, medicaments and biological substances